=== PATIENT | male | born 1980 | race Caucasian/White ===

== ENCOUNTER 2021-05-17 16:59 | Inpatient (IN) ==
[2021-05-17] MEDS ORDERED: Isovue-370 500 ML BOTTLE IVP ONE (17:20)
[2021-05-17] MEDS ORDERED: 0.9 % Sodium Chloride 1,000 ML IVC ONE (17:20)
[2021-05-17] MEDS ORDERED: Pantoprazole 80 MG in 0.9 % Sodium Chloride 50 ML IVPB ONE (17:20)
[2021-05-17 17:29] LABS: Basophils # 0.1 K/mcL (0.0-0.2); Basophils % 0.5 %; Eosinophils # 0.1 K/mcL (0.0-0.6); Eosinophils % 0.8 %; Hematocrit 36.4 % (37.5-50.1); Hemoglobin 12.3 g/dL (12.9-16.9); Immature Granulocytes % 0.4 % (0-4); Lymphocytes # 1.6 K/mcL (0.6-4.6); Lymphocytes % 13.9 %; Mean Corpuscular HGB Conc 33.8 g/dL (31.6-35.5); Mean Corpuscular Hemoglobin 30.8 pg (28.0-33.3); Mean Corpuscular Volume 91.2 fL (83.0-100.0); Mean Platelet Volume 9.6 fL (9.4-12.4); Monocytes % 8.5 %; Neutrophils # 8.6 K/mcL (1.6-8.9); Platelet Count 353 K/mcL (140-400); Red Blood Count 3.99 M/mcL (4.19-5.50); Red Cell Distribution Width 11.6 % (11.5-14.5); Segmented Neutrophils % 75.9 %; White Blood Count 11.3 K/mcL (4.3-11.1)
[2021-05-17 17:38] LABS: INR 1.1; Prothrombin Time 12.2 Seconds (9.4-12.1)
[2021-05-17 17:41] LABS: Activated Partial Thrombo Time 26.1 Seconds (26.0-36.0)
[2021-05-17 17:46] LABS: BUN/Creatinine Ratio 40 (6-26); Blood Urea Nitrogen 34 mg/dL (6-20); Calcium 9.4 mg/dL (8.6-10.3); Carbon Dioxide 26 mEq/L (23-29); Chloride 104 mEq/L (98-107); Glucose 110 mg/dL (70-105); Osmolality,Calculated 294 (280-300); Potassium 4.5 mEq/L (3.5-5.1); Sodium 138 mEq/L (136-145); eGFR For African Americans > 60 (> 60); eGFR For Non-African Americans > 60 (> 60)
[2021-05-17 18:01] LABS: Lipase 43 Units/L (11-82); Troponin I < 0.03 ng/mL (< 0.04)
[2021-05-17] MEDS ORDERED: Pantoprazole 40 MG VIAL IVP ONE (20:00)
[2021-05-17] MEDS: Octreotide 400 MCG in 0.9 % Sodium Chloride 100 ML IVC SCH (20:05)
[2021-05-17] MEDS: Pantoprazole 40 MG in 0.9 % Sodium Chloride Mini Bag 100 ML IVC SCH (20:06)
[2021-05-17] MEDS ORDERED: Acetaminophen 325 MG TABLET PO PRN (20:27)
[2021-05-17] MEDS ORDERED: Naloxone 0.4 MG/ML INJ IVP PRN (20:27)
[2021-05-17] MEDS ORDERED: Ondansetron ODT 4 MG TAB.RAPDIS SL PRN (20:27)
[2021-05-17] MEDS ORDERED: Metoclopramide 10 MG/2 ML VIAL IVP ONE (20:45)
[2021-05-17] MEDS ORDERED: Ondansetron 4 MG/2 ML VIAL IVP PRN (20:45)
[2021-05-17] MEDS ORDERED: *HR* LORazepam 2 MG/ML VIAL IVP ONE (20:50)
[2021-05-17] MEDS ORDERED: Morphine Sulfate 2 MG/ML SYRINGE IVP ONE (20:50)
[2021-05-17] MEDS ORDERED: Dextrose Gel 15 GM/37.5 ML TUBE PO PRN ×2 (20:53)
[2021-05-17] MEDS ORDERED: D5% in Water 1,000 ML IVC PRN (20:53)
[2021-05-17] MEDS ORDERED: *HR* Dextrose 50 % in Water (Syg) 50 ML SYRINGE IVP PRN (20:53)
[2021-05-17] MEDS ORDERED: Octreotide 50 MCG/ML INJ IVP STA (21:11)
[2021-05-17 21:45] LABS: Hematocrit 31.7 % (37.5-50.1)
[2021-05-17 21:48] LABS: Hemoglobin 10.6 g/dL (12.9-16.9)
[2021-05-17] MEDS ORDERED: *HR* FentaNYL (PF) 100 MCG/2 ML VIAL ONE (21:59)
[2021-05-17] MEDS ORDERED: *HR* Propofol 200 MG/20 ML VIAL IVP ONE (21:59)
[2021-05-17] MEDS ORDERED: *HR* Succinylcholine 200 MG/10 ML VIAL IVP ONE (22:00)
[2021-05-17] MEDS ORDERED: Lidocaine -MPF 2% 5 ML VIAL ONE (22:01)
[2021-05-17] MEDS ORDERED: Ondansetron 4 MG/2 ML VIAL ONE (22:20)
[2021-05-17] MEDS ORDERED: Haloperidol Lactate 5 MG/ML VIAL ONE (22:27)
[2021-05-17] MEDS ORDERED: *HR* LORazepam 2 MG/ML VIAL IVP PRN ×3 (23:46)
[2021-05-18] MEDS ORDERED: *HR* LORazepam 2 MG/ML VIAL IVP ONE (00:04)
[2021-05-18] MEDS ORDERED: Ondansetron 4 MG/2 ML VIAL IVP ONE (00:04)
[2021-05-18] MEDS: cefTRIAXone 1,000 MG in 0.9 % Sodium Chloride Mini Bag 100 ML IVPB SCH ×2 (00:12→07:30)
[2021-05-18] MEDS: Pantoprazole 40 MG in 0.9 % Sodium Chloride Mini Bag 100 ML IVC SCH ×5 (00:12→21:04)
[2021-05-18 02:27] LABS: Basophils % 0.2 %; Hematocrit 29.6 % (37.5-50.1); Hemoglobin 9.5 g/dL (12.9-16.9); Immature Granulocytes % 0.5 % (0-4); Lymphocytes # 0.5 K/mcL (0.6-4.6); Lymphocytes % 4.1 %; Mean Corpuscular HGB Conc 32.1 g/dL (31.6-35.5); Mean Corpuscular Hemoglobin 30.1 pg (28.0-33.3); Mean Corpuscular Volume 93.7 fL (83.0-100.0); Mean Platelet Volume 9.7 fL (9.4-12.4); Monocytes # 0.2 K/mcL (0.0-1.3); Platelet Count 280 K/mcL (140-400); Red Blood Count 3.16 M/mcL (4.19-5.50); Red Cell Distribution Width 11.8 % (11.5-14.5); Segmented Neutrophils % 93.2 %; White Blood Count 11.8 K/mcL (4.3-11.1)
[2021-05-18 02:32] LABS: INR 1.1
[2021-05-18 02:35] LABS: Activated Partial Thrombo Time 22.3 Seconds (26.0-36.0)
[2021-05-18 02:43] LABS: Alanine Aminotransferase 19 Units/L (7-52); Albumin 3.9 g/dL (3.5-5.7); Albumin/Globulin Ratio 2.1 (1.1-2.2); Alkaline Phosphatase 41 Units/L (34-104); Aspartate Amino Transferase 13 Units/L (13-39); BUN/Creatinine Ratio 33 (6-26); Bilirubin,Total 0.5 mg/dL (0.3-1.0); Blood Urea Nitrogen 27 mg/dL (6-20); Calcium 8.3 mg/dL (8.6-10.3); Carbon Dioxide 21 mEq/L (23-29); Chloride 109 mEq/L (98-107); Globulin 1.9 g/dL (2.4-3.5); Glucose 142 mg/dL (70-105); Magnesium 1.7 mg/dL (1.6-2.6); Osmolality,Calculated 292 (280-300); Potassium 4.4 mEq/L (3.5-5.1); Sodium 137 mEq/L (136-145); Total Protein 5.8 g/dL (6.4-8.9); eGFR For African Americans > 60 (> 60); eGFR For Non-African Americans > 60 (> 60)
[2021-05-18] MEDS: Octreotide 400 MCG in 0.9 % Sodium Chloride 100 ML IVC SCH ×3 (03:47→20:24)
[2021-05-18 05:51] LABS: Hemoglobin 9.3 g/dL (12.9-16.9)
[2021-05-18] MEDS: Calcium Gluconate 1gm/50mL 1 GM/50 ML BAG IVPB SCH ×2 (06:28→07:30)
[2021-05-18] MEDS: Folic Acid 1 MG TABLET PO SCH (09:14)
[2021-05-18] MEDS: Vitamin B Complex/Vit C/Vit E 1 EACH TABLET PO SCH (09:14)
[2021-05-18] MEDS: Thiamine (B-1) 100 MG TABLET PO SCH (09:14)
[2021-05-18 09:43] LABS: Hematocrit 26.7 % (37.5-50.1); Hemoglobin 9.4 g/dL (12.9-16.9)
[2021-05-18 14:44] LABS: Hematocrit 25.7 % (37.5-50.1); Hemoglobin 8.6 g/dL (12.9-16.9)
[2021-05-18 17:55] LABS: Hematocrit 23.4 % (37.5-50.1); Hemoglobin 8.1 g/dL (12.9-16.9)
[2021-05-18 21:37] LABS: Hematocrit 26.8 % (37.5-50.1); Hemoglobin 8.3 g/dL (12.9-16.9)
[2021-05-19 00:56] LABS: Hematocrit 23.9 % (37.5-50.1); Mean Corpuscular HGB Conc 33.5 g/dL (31.6-35.5); Mean Corpuscular Hemoglobin 30.8 pg (28.0-33.3); Mean Corpuscular Volume 91.9 fL (83.0-100.0); Mean Platelet Volume 9.7 fL (9.4-12.4); Platelet Count 253 K/mcL (140-400); White Blood Count 9.2 K/mcL (4.3-11.1)
[2021-05-19 00:59] LABS: BUN/Creatinine Ratio 18 (6-26); Blood Urea Nitrogen 16 mg/dL (6-20); Calcium 8.3 mg/dL (8.6-10.3); Carbon Dioxide 25 mEq/L (23-29); Chloride 108 mEq/L (98-107); Glucose 111 mg/dL (70-105); Osmolality,Calculated 286 (280-300); Potassium 3.9 mEq/L (3.5-5.1); Sodium 137 mEq/L (136-145); eGFR For African Americans > 60 (> 60); eGFR For Non-African Americans > 60 (> 60)
[2021-05-19] MEDS: Pantoprazole 40 MG in 0.9 % Sodium Chloride Mini Bag 100 ML IVC SCH ×5 (02:00→20:01)
[2021-05-19] MEDS: Octreotide 400 MCG in 0.9 % Sodium Chloride 100 ML IVC SCH ×3 (04:20→22:14)
[2021-05-19] MEDS: cefTRIAXone 1,000 MG in 0.9 % Sodium Chloride Mini Bag 100 ML IVPB SCH (08:14)
[2021-05-19] MEDS: Vitamin B Complex/Vit C/Vit E 1 EACH TABLET PO SCH (08:15)
[2021-05-19] MEDS: Folic Acid 1 MG TABLET PO SCH (08:15)
[2021-05-19] MEDS: Thiamine (B-1) 100 MG TABLET PO SCH (08:15)
[2021-05-19 14:21] LABS: Hematocrit 25.6 % (37.5-50.1); Hemoglobin 8.2 g/dL (12.9-16.9)
[2021-05-19 21:17] LABS: Hematocrit 25.3 % (37.5-50.1); Hemoglobin 8.5 g/dL (12.9-16.9)
[2021-05-20] MEDS: Pantoprazole 40 MG in 0.9 % Sodium Chloride Mini Bag 100 ML IVC SCH ×3 (00:47→11:24)
[2021-05-20 03:35] LABS: Hematocrit 24.7 % (37.5-50.1); Hemoglobin 8.5 g/dL (12.9-16.9); Mean Corpuscular HGB Conc 34.4 g/dL (31.6-35.5); Mean Corpuscular Hemoglobin 31.1 pg (28.0-33.3); Mean Corpuscular Volume 90.5 fL (83.0-100.0); Mean Platelet Volume 9.8 fL (9.4-12.4); Platelet Count 266 K/mcL (140-400); Red Blood Count 2.73 M/mcL (4.19-5.50); Red Cell Distribution Width 11.9 % (11.5-14.5); White Blood Count 9.9 K/mcL (4.3-11.1)
[2021-05-20 03:49] LABS: BUN/Creatinine Ratio 17 (6-26); Blood Urea Nitrogen 16 mg/dL (6-20); Calcium 8.5 mg/dL (8.6-10.3); Carbon Dioxide 27 mEq/L (23-29); Chloride 106 mEq/L (98-107); Glucose 107 mg/dL (70-105); Osmolality,Calculated 284 (280-300); Potassium 3.8 mEq/L (3.5-5.1); Sodium 136 mEq/L (136-145); eGFR For African Americans > 60 (> 60); eGFR For Non-African Americans > 60 (> 60)
[2021-05-20] MEDS: Octreotide 400 MCG in 0.9 % Sodium Chloride 100 ML IVC SCH ×2 (06:57→15:44)
[2021-05-20] MEDS: Vitamin B Complex/Vit C/Vit E 1 EACH TABLET PO SCH (09:14)
[2021-05-20] MEDS: Thiamine (B-1) 100 MG TABLET PO SCH (09:14)
[2021-05-20] MEDS: cefTRIAXone 1,000 MG in 0.9 % Sodium Chloride Mini Bag 100 ML IVPB SCH (09:14)
[2021-05-20] MEDS: Folic Acid 1 MG TABLET PO SCH (09:14)
[2021-05-20 13:04] LABS: Hematocrit 28.1 % (37.5-50.1); Hemoglobin 9.4 g/dL (12.9-16.9)
[2021-05-20 21:27] LABS: Hematocrit 26.4 % (37.5-50.1); Hemoglobin 8.8 g/dL (12.9-16.9)
[2021-05-21] MEDS: Thiamine (B-1) 100 MG TABLET PO SCH (07:49)
[2021-05-21] MEDS: Vitamin B Complex/Vit C/Vit E 1 EACH TABLET PO SCH (07:49)
[2021-05-21] MEDS: Folic Acid 1 MG TABLET PO SCH (07:49)
[2021-05-21 07:58] LABS: Hematocrit 24.9 % (37.5-50.1); Hemoglobin 8.6 g/dL (12.9-16.9); Mean Corpuscular HGB Conc 34.5 g/dL (31.6-35.5); Mean Corpuscular Volume 89.9 fL (83.0-100.0); Mean Platelet Volume 10.1 fL (9.4-12.4); Platelet Count 298 K/mcL (140-400); Red Blood Count 2.77 M/mcL (4.19-5.50); Red Cell Distribution Width 11.9 % (11.5-14.5); White Blood Count 7.6 K/mcL (4.3-11.1)
[2021-05-21 08:18] LABS: BUN/Creatinine Ratio 16 (6-26); Blood Urea Nitrogen 14 mg/dL (6-20); Calcium 8.7 mg/dL (8.6-10.3); Carbon Dioxide 26 mEq/L (23-29); Chloride 103 mEq/L (98-107); Glucose 99 mg/dL (70-105); Osmolality,Calculated 285 (280-300); Potassium 3.7 mEq/L (3.5-5.1); Sodium 137 mEq/L (136-145); eGFR For African Americans > 60 (> 60); eGFR For Non-African Americans > 60 (> 60)
[2021-05-21] MEDS: Sennosides/Docusate Sodium TABLET PO SCH ×2 (12:25→21:41)
[2021-05-21 13:46] LABS: Hematocrit 26.8 % (37.5-50.1); Hemoglobin 9.1 g/dL (12.9-16.9)
[2021-05-21] MEDS: Aspirin Enteric Coated 81 MG Tablet PO SCH (17:02)
[2021-05-21 21:43] LABS: Hemoglobin 8.5 g/dL (12.9-16.9)
[2021-05-22 06:28] LABS: Hematocrit 25.5 % (37.5-50.1); Hemoglobin 8.9 g/dL (12.9-16.9); Mean Corpuscular HGB Conc 34.9 g/dL (31.6-35.5); Mean Corpuscular Hemoglobin 31.3 pg (28.0-33.3); Mean Corpuscular Volume 89.8 fL (83.0-100.0); Mean Platelet Volume 9.7 fL (9.4-12.4); Platelet Count 342 K/mcL (140-400); Red Blood Count 2.84 M/mcL (4.19-5.50); Red Cell Distribution Width 12.2 % (11.5-14.5); White Blood Count 7.6 K/mcL (4.3-11.1)
[2021-05-22 06:48] LABS: BUN/Creatinine Ratio 17 (6-26); Blood Urea Nitrogen 17 mg/dL (6-20); Calcium 8.8 mg/dL (8.6-10.3); Carbon Dioxide 28 mEq/L (23-29); Chloride 103 mEq/L (98-107); Glucose 94 mg/dL (70-105); Osmolality,Calculated 285 (280-300); Potassium 3.8 mEq/L (3.5-5.1); Sodium 137 mEq/L (136-145); eGFR For African Americans > 60 (> 60); eGFR For Non-African Americans > 60 (> 60)
[2021-05-22] MEDS: Thiamine (B-1) 100 MG TABLET PO SCH (07:42)
[2021-05-22] MEDS: Aspirin Enteric Coated 81 MG Tablet PO SCH (07:42)
[2021-05-22] MEDS: Folic Acid 1 MG TABLET PO SCH (07:42)
[2021-05-22] MEDS: Vitamin B Complex/Vit C/Vit E 1 EACH TABLET PO SCH (07:42)
[2021-05-22] MEDS: Sennosides/Docusate Sodium TABLET PO SCH (07:54)
[2021-05-22 12:33] VITALS: BP 124/71; PULSE 70; TEMP 97.6; O2SAT 96
== END 2021-05-22 12:59 | disposition home or self-care (01) | DRG 369 ==
LOC: SUATTDRO → EMEROOARM 16:59 → 3ANU 20:05 → SUATTDRO 20:05 → 3ANU 22:03 → 2NNU 22:59 → 3ANU 05-19 18:08
PROVIDERS: ADMIT Internal Medicine; ATTEND Internal Medicine